=== PATIENT | female | born 2005 | race Two or more races ===

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

== ENCOUNTER → 2025-01-16 | Outpatient (CLI) | payer BC, OTHER ==
--- NOTE | 2025-01-16 08:11 | US ---
EXAMINATION TYPE: US liver DATE OF EXAM: 01/16/2025 COMPARISON: NONE CLINICAL INDICATION: Female, 19 years old with history of R79.89 OTHER SPECIFIED ABNORMAL FINDINGS OF BLOOD; Elevated liver enzymes TECHNIQUE: Grayscale and color Doppler imaging of the right upper quadrant was performed. FINDINGS: EXAM MEASUREMENTS: Liver Length: 18.7 cm Gallbladder Wall: .1 cm CBD: .2 cm Right Kidney: 10.7 x 3.6 x 4.1 cm PATTERN ILLUSTRATOR NOTES: Pancreas: Obscured by bowel gas Liver: Increased attenuation Gallbladder: No stones seen Evidence for sonographic Martinez's sign: no CBD: wnl Right Kidney: No hydronephrosis or masses seen IMPRESSION: Hepatomegaly with mild fatty truncation. [facility], Workstation: [facility], 01/16/2025 8:08 AM
== END | disposition home or self-care (01) ==
LOC: RADUSWWP 06:47
PROVIDERS: ATTEND Family Medicine
DX: K76.0 Fatty (change of) liver, not elsewhere classified (principal); R79.89 Other specified abnormal findings of blood chemistry; R16.0 Hepatomegaly, not elsewhere classified
CPT/HCPCS: 76705